=== PATIENT | male | born 1995 | race Asian ===

== ENCOUNTER 2018-12-11 10:47 | Emergency (ER) | payer BC ==
[~2018-12-11] VITALS: Ht 180.3 cm; Wt 111.6 kg
[2018-12-11 10:50] VITALS: TEMP 98.1
[2018-12-11 12:00] LABS: PLATELET COUNT 277 K/uL (142-355)
[2018-12-11 12:07] LABS: POTASSIUM 4.5 mmol/L (3.6-5.2)
[2018-12-11 14:00] VITALS: BP 148/64
== END 2018-12-11 14:55 | disposition home or self-care (01) ==
LOC: ED 10:47
PROVIDERS: Emergency Medicine
DX: K21.9 Gastro-esophageal reflux disease without esophagitis (principal)
CPT/HCPCS: 80053; 81000; 82150; 83690; 85027; 96374; 99284; J2405; Q9963

== ENCOUNTER 2019-12-18 07:17 | Emergency (ER) | payer BC ==
[~2019-12-18] VITALS: Ht 180.3 cm; Wt 111.6 kg
[2019-12-18 07:28] VITALS: TEMP 99.1
[2019-12-18 10:26] VITALS: BP 128/68
== END 2019-12-18 10:26 | disposition home or self-care (01) ==
LOC: ED 07:17
DX: S16.1XXA Strain of muscle, fascia and tendon at neck level, initial encounter (principal); S86.812A Strain of other muscle(s) and tendon(s) at lower leg level, left leg, initial encounter; S46.812A Strain of other muscles, fascia and tendons at shoulder and upper arm level, left arm, initial encounter; V40.0XXA Car driver injured in collision with pedestrian or animal in nontraffic accident, initial encounter; Y92.89 Other specified places as the place of occurrence of the external cause
CPT/HCPCS: 96372; 99283; J2270; J2550

== ENCOUNTER 2020-09-10 14:08 | Emergency (ER) | payer OTHER ==
[~2020-09-10] VITALS: Ht 180.3 cm; Wt 108.9 kg
[2020-09-10 14:53] VITALS: BP 114/57; TEMP 100.6
[2020-09-10 17:07] LABS: PLATELET COUNT 168 K/uL (142-355)
[2020-09-10 17:15] LABS: POTASSIUM 4.1 mmol/L (3.6-5.2); SODIUM 136 mmol/L (136-145)
[2020-09-10 17:28] LABS: PARTIAL THROMBOPLASTIN TIME 33.9 SECONDS (24.5-33.6)
== END 2020-09-10 20:38 | disposition home or self-care (01) ==
LOC: ED 14:08
PROVIDERS: Hospitalist
DX: U07.1 COVID-19 (principal); J12.82 Pneumonia due to coronavirus disease 2019
CPT/HCPCS: 36415; 80053; 82550; 83880; 84484; 85027; 85379; 85610; 85730; 93005; 96374; 96375; 99284; J1100; J1885; J2405; Q9963

== ENCOUNTER 2020-10-29 13:36 | Outpatient (CLI) | payer BC | END 2020-10-29 21:43 | disposition home or self-care (01) | LOC: CT 13:36 | PROVIDERS: ATTEND Nurse Practitioner Family | DX: R10.31 Right lower quadrant pain (principal) | CPT/HCPCS: Q9963 ==

== ENCOUNTER 2020-11-08 11:28 | Outpatient (CLI) | payer BC | END 2020-11-08 21:09 | disposition home or self-care (01) | LOC: CT 11:28 | PROVIDERS: ATTEND Nurse Practitioner Primary Care | DX: K35.80 Unspecified acute appendicitis (principal) | CPT/HCPCS: 36415; 82565; 84520; Q9963 ==

== ENCOUNTER 2021-01-11 19:56 | Emergency (ER) | payer BC ==
[~2021-01-11] VITALS: Ht 180.3 cm; Wt 104.3 kg
[2021-01-11 20:38] LABS: PLATELET COUNT 251 K/uL (142-355)
[2021-01-11 20:47] LABS: POTASSIUM 3.7 mmol/L (3.6-5.2)
[2021-01-11 21:33] VITALS: BP 168/76; TEMP 98.6
== END 2021-01-11 21:33 | disposition home or self-care (01) ==
LOC: ED 19:56
PROVIDERS: Hospitalist
DX: K21.9 Gastro-esophageal reflux disease without esophagitis (principal); K29.70 Gastritis, unspecified, without bleeding
CPT/HCPCS: 36415; 80053; 81000; 83690; 84484; 85027; 87502; 87651; 93005; 96360; 96375; 99284; J2405

== ENCOUNTER 2021-01-18 10:44 | Outpatient (CLI) | payer BC | END 2021-01-18 19:08 | disposition home or self-care (01) | LOC: US 10:44 | PROVIDERS: ATTEND Nurse Practitioner Primary Care | DX: R10.11 Right upper quadrant pain (principal) ==

== ENCOUNTER 2021-02-21 19:08 | Outpatient (CLI) | payer BC ==
[2021-02-21 20:11] LABS: PLATELET COUNT 256 K/uL (142-355)
[2021-02-21 20:21] LABS: POTASSIUM 3.8 mmol/L (3.6-5.2)
== END 2021-02-21 20:29 | disposition home or self-care (01) ==
LOC: LABW 19:08
PROVIDERS: ATTEND Specialist
DX: R10.11 Right upper quadrant pain (principal); R11.0 Nausea; K21.9 Gastro-esophageal reflux disease without esophagitis; R93.2 Abnormal findings on diagnostic imaging of liver and biliary tract
CPT/HCPCS: 36415; 80053; 85027; 86677

== ENCOUNTER 2021-03-31 13:18 | Emergency (ER) | payer BC ==
[~2021-03-31] VITALS: Ht 180.3 cm; Wt 104.3 kg
[2021-03-31 14:30] VITALS: BP 143/81; TEMP 97.8
== END 2021-03-31 14:30 | disposition home or self-care (01) ==
LOC: ED 13:18
DX: S80.811A Abrasion, right lower leg, initial encounter (principal); W59.11XA Bitten by nonvenomous snake, initial encounter; Y92.89 Other specified places as the place of occurrence of the external cause
CPT/HCPCS: 96372; 99283; J0690; J1885

== ENCOUNTER 2021-06-07 11:14 | Outpatient (CLI) | payer BC ==
[2021-06-07 11:44] LABS: POTASSIUM 4.1 mmol/L (3.6-5.2)
== END 2021-06-07 19:45 | disposition home or self-care (01) ==
LOC: LABW 11:14
PROVIDERS: ATTEND Nurse Practitioner Family
DX: R10.12 Left upper quadrant pain (principal); R07.9 Chest pain, unspecified
CPT/HCPCS: 36415; 80053; 82150; 82550; 83690; 84484

== ENCOUNTER 2021-06-07 19:27 | Emergency (ER) | payer BC ==
[~2021-06-07] VITALS: Ht 180.3 cm; Wt 108.4 kg
[2021-06-07 22:15] VITALS: BP 130/83; TEMP 98.3
== END 2021-06-07 22:15 | disposition home or self-care (01) ==
LOC: ED 19:27
DX: K21.9 Gastro-esophageal reflux disease without esophagitis (principal); Z98.890 Other specified postprocedural states
CPT/HCPCS: 93005; 96374; 99284; J3490; Q9963

== ENCOUNTER 2021-07-20 12:08 | Outpatient (CLI) | payer BC | END 2021-07-20 19:13 | disposition home or self-care (01) | LOC: RAD 12:08 | PROVIDERS: ATTEND Nurse Practitioner Family | DX: M25.562 Pain in left knee (principal) ==

== ENCOUNTER 2021-12-26 11:32 | Outpatient (CLI) | payer BC | END 2021-12-26 20:28 | disposition home or self-care (01) | LOC: RAD 11:32 | PROVIDERS: ATTEND Family Medicine | DX: R10.84 Generalized abdominal pain (principal) ==

== ENCOUNTER 2022-01-09 16:08 | Outpatient (CLI) | payer BC ==
[2022-01-09 16:22] LABS: PLATELET COUNT 261 K/uL (142-355)
[2022-01-09 16:27] LABS: POTASSIUM 3.9 mmol/L (3.6-5.2)
== END 2022-01-09 19:37 | disposition home or self-care (01) ==
LOC: LABW 16:08
PROVIDERS: ATTEND Nurse Practitioner Family
DX: R10.30 Lower abdominal pain, unspecified (principal); R19.7 Diarrhea, unspecified
CPT/HCPCS: 36415; 80053; 82150; 83630; 83690; 85027; 87015; 87045; 87324; 87328; 87329; 87449; 87899

== ENCOUNTER 2022-01-16 14:03 | Outpatient (CLI) | payer BC | END 2022-01-16 20:26 | disposition home or self-care (01) | LOC: CT 14:03 | PROVIDERS: ATTEND Nurse Practitioner Family | DX: R10.30 Lower abdominal pain, unspecified (principal) | CPT/HCPCS: Q9963 ==